=== PATIENT | female | born 1965 | race Caucasian/White ===

== ENCOUNTER → 2021-11-05 | Outpatient (CLI) | payer MEDICAID ==
--- NOTE | 2021-11-05 13:46 | Diagnostic Imaging Report ---
INDICATION: Abnormal bone marrow. Patient has severe back pain for two months. TECHNIQUE: Serum blood glucose level at the time of injection is 87 mg/dL. Patient was administered 12.4 mCi F-18 FDG intravenously in the left antecubital location and PET imaging was performed from the top of the skull to mid thighs. Noncontrast CT was also performed for attenuation correction and anatomic correlation. COMPARISON: No prior PET/CT studies are available for comparison. FINDINGS: There is symmetric activity throughout the brain. The soft tissues of the neck are unremarkable. There are groundglass infiltrates involving bilateral upper lobes. These demonstrate low-level hypermetabolic activity ranging from SUV max of 4 to 5. No definite hypermetabolic mediastinal or hilar lymphadenopathy is seen. Abdomen and pelvis demonstrate physiologic activity. Low-level activity within a skin lesion in the left buttock region shows an SUV max of 3.1, indeterminate. No other suspicious regions are identified. IMPRESSION: There is low-level activity involving bilateral predominantly upper lobe groundglass pulmonary infiltrates which may be on infectious/inflammatory basis. Follow-up with conventional CT chest could be performed to confirm stability or clearing. No hypermetabolic lymphadenopathy in the neck, chest, abdomen or pelvis is identified. Dictated by: Dictated on workstation # [id number]
== END ==
LOC: RAD 11:15
PROVIDERS: ATTEND Internal Medicine Hematology & Oncology
DX: R91.8 Other nonspecific abnormal finding of lung field (principal); M54.6 Pain in thoracic spine; R93.7 Abnormal findings on diagnostic imaging of other parts of musculoskeletal system